=== PATIENT | male | born 1955 | race Caucasian/White ===

== ENCOUNTER 2020-02-16 17:09 | Emergency (ER) | payer MEDICARE, BC ==
[~2020-02-16] VITALS: Ht 182.9 cm; Wt 93.2 kg
[~2020-02-16 17:09] MED LIST: CALC-793 PO; FLO0.4C PO; HYDR-4353 PO; MAGN400C PO; MULT-620 PO; TRAM50TA2 PO
[2020-02-16 21:36] VITALS: BP 128/91
== END 2020-02-16 21:33 | disposition home or self-care (01) ==
LOC: ER 17:10
DX: R07.89 Other chest pain (principal); R50.9 Fever, unspecified; R06.02 Shortness of breath; G89.29 Other chronic pain; Z88.6 Allergy status to analgesic agent; Z88.8 Allergy status to other drugs, medicaments and biological substances; Z79.899 Other long term (current) drug therapy
CPT/HCPCS: 71045; 93005; 99283